=== PATIENT | female | born 1995 | race Caucasian/White ===

== ENCOUNTER 2023-04-14 08:59 | Inpatient (IN) | payer MEDICAID ==
[~2023-04-14] VITALS: Ht 162.6 cm; Wt 83.9 kg
[2023-04-14 09:38] LABS: APPEARANCE,URINE SL CLOUDY (CLEAR); BILIRUBIN,URINE NEGATIVE (NEGATIVE); BLOOD, URINE NEGATIVE (NEGATIVE); COLOR,URINE YELLOW (YELLOW); LEUKOCYTE ESTERASE ,URINE 2+ (NEGATIVE); NITRITE, URINE NEGATIVE (NEGATIVE); PROTEIN,URINE TRACE (NEGATIVE); UGLUCOSE NEGATIVE (NEGATIVE)
[2023-04-14] MEDS ORDERED: CITRIC ACID/SODIUM CITRATE 30 ML UDC PO SCH (09:45)
[2023-04-14 09:50] LABS: BACTERIA,URINE 10-30 (MOD) /HPF (None Seen); MUCUS,URINE 1+ /LPF (None Seen); RBC,URINE 0-5 /HPF (0-5); SQUAMOUS EPITHELIAL CELL,UR 4-10 (MOD) /LPF (0-3 (FEW))
[2023-04-14 09:56] LABS: INR 0.94 (0.8-1.2); PARTIAL THROMBOPLASTIN TIME 23.9 secs (22-35.6); PROTHROMBIN TIME 9.9 secs (10.8-13.4)
[2023-04-14 10:01] LABS: HEMATOCRIT 31.7 % (36-48); HEMOGLOBIN 10.2 g/dL (12.0-16.0); MEAN CORPUSCULAR HEMOGLOBIN 22 pg (27-31); MEAN CORPUSCULAR HGB CONC 32 g/dL (33-37); MEAN CORPUSCULAR VOLUME 69.8 fL (80-94); PLATELET COUNT (AUTO) 159 K/uL (140-450); RED BLOOD CELL COUNT(AUTO) 4.54 MIL/uL (4.20-5.40); RED CELL DISTRIBUTION WIDTH 22.3 % (11.6-13.7); WHITE BLOOD COUNT (AUTO) 8.7 K/uL (4.8-10.8)
[2023-04-14 10:05] LABS: ALBUMIN 2.3 g/dL (3.4-5.0); ANION GAP 11.4 (8-16); CALCIUM 8.9 mg/dL (8.5-10.1); CARBON DIOXIDE 27.1 mmol/L (21-32); CREATININE 0.7 mg/dL (0.6-1.3); POTASSIUM 4.5 mmol/L (3.5-5.1); TOTAL BILIRUBIN 0.5 mg/dL (0.0-1.0); TOTAL PROTEIN, SERUM 6.5 g/dL (6.4-8.2)
[2023-04-14] MEDS ORDERED: ceFAZolin 2,000 MG VIAL ONE (10:10)
[2023-04-14] MEDS: LACTATED RINGERS 1,000 ML IV SCH ×2 (10:52→12:06)
[2023-04-14] MEDS ORDERED: PRETAB PO (11:30)
[2023-04-14] MEDS ORDERED: FERR-212 PO (11:31)
[2023-04-14] MEDS ORDERED: MORPHINE PRES FREE 5 MG/10 ML AMP IV ONE (11:53)
[2023-04-14] MEDS ORDERED: fentaNYL citrate 0.05 MG/ML VIAL ONE (11:54)
[2023-04-14 12:16] LABS: LYMPHOCYTES % (MANUAL) 9 % (20-46); MONOCYTES % (MANUAL) 6 % (5-12)
[2023-04-14 12:17] LABS: ANISOCYTOSIS 3+; POIKILOCYTOSIS 2+
[2023-04-14] MEDS: OXYTOCIN 20 UNITS in LACTATED RINGERS 1,000 ML IV SCH (12:21)
[2023-04-14] MEDS ORDERED: oxyCODONE/APAP 5/325 MG 1 TAB TAB PO PRN (12:45)
[2023-04-14] MEDS ORDERED: KETOROLAC 30 MG/ML VIAL IVP PRN (12:45)
[2023-04-14] MEDS ORDERED: TEMAZEPAM 15 MG CAP PO PRN (12:45)
[2023-04-14] MEDS ORDERED: METHYLERGONOVINE 0.2 MG/ML AMP IM PRN (12:45)
[2023-04-14] MEDS ORDERED: IBUPROFEN 800 MG TAB PO PRN (12:45)
[2023-04-14] MEDS ORDERED: OXYTOCIN 20 UNITS/LR PREMIX 1,000 ML IV ONE (12:57)
[2023-04-14] MEDS ORDERED: diphenhydrAMINE 50 MG/ML VIAL IVP PRN (13:55)
[2023-04-14] MEDS ORDERED: ONDANSETRON 4 MG/2 ML VIAL IVP PRN (13:55)
[2023-04-14] MEDS ORDERED: KETOROLAC 60 MG/2 ML VIAL IM PRN (13:55)
[2023-04-15] MEDS: SIMETHICONE 80 MG TAB.CHEW PO PRN ×4 (00:30→18:53)
[2023-04-15] MEDS: DOCUSATE SOD/SENNA 50/8.6 MG 1 TAB PO SCH ×2 (00:32→21:11)
[2023-04-15] MEDS: OXYTOCIN 20 UNITS in LACTATED RINGERS 1,000 ML IV SCH (03:41)
[2023-04-15] MEDS ORDERED: FLU VACCINE QS2022-23 0.5 ML SYR IMVAC ONE (07:55)
[2023-04-15] MEDS ORDERED: FLU VACCINE QS2023-24 0.5 ML SYR IMVAC ONE (08:35)
[2023-04-15 08:40] LABS: BASOPHILS % (AUTO) 0.4 % (0.0-2.0); EOSINOPHILS % (AUTO) 0.2 % (0.0-4.0); HEMATOCRIT 31.3 % (36-48); HEMOGLOBIN 9.9 g/dL (12.0-16.0); LYMPHOCYTES # (AUTO) 1.8 K/uL (2.5-16.5); LYMPHOCYTES % (AUTO) 15.7 % (20.5-51.1); MEAN CORPUSCULAR HEMOGLOBIN 22 pg (27-31); MEAN CORPUSCULAR HGB CONC 32 g/dL (33-37); MEAN CORPUSCULAR VOLUME 69.1 fL (80-94); MONOCYTES # (AUTO) 0.6 K/uL (0.8-1.0); MONOCYTES % (AUTO) 5.4 % (1.7-9.3); NEUTROPHILS # (AUTO) 8.9 K/uL (1.8-7.7); NEUTROPHILS % (AUTO) 78.3 % (42.2-75.2); PLATELET COUNT (AUTO) 143 K/uL (140-450); RED BLOOD CELL COUNT(AUTO) 4.52 MIL/uL (4.20-5.40); RED CELL DISTRIBUTION WIDTH 22.2 % (11.6-13.7); WHITE BLOOD COUNT (AUTO) 11.4 K/uL (4.8-10.8)
[2023-04-15] MEDS ORDERED: OXYTOCIN 20 UNITS/LR PREMIX 1,000 ML IV ONE (12:10)
[2023-04-15] MEDS: oxyCODONE/APAP 5/325 MG 1 TAB TAB PO PRN ×2 (13:18→22:50)
[2023-04-16] MEDS: SIMETHICONE 80 MG TAB.CHEW PO PRN ×2 (01:05→08:44)
[2023-04-16] MEDS ORDERED: FLU VACCINE QS2023-24 0.5 ML SYR IMVAC ONE (04:05)
[2023-04-16] MEDS ORDERED: CAMERA MC ONE (04:42)
[2023-04-16] MEDS: oxyCODONE/APAP 5/325 MG 1 TAB TAB PO PRN ×2 (08:44→16:40)
[2023-04-16] MEDS ORDERED: SODIUM PHOSPHATE 118 ML ENEM RC SCH (15:00)
[2023-04-16] MEDS: DOCUSATE SOD/SENNA 50/8.6 MG 1 TAB PO SCH (21:00)
[2023-04-17] MEDS: oxyCODONE/APAP 5/325 MG 1 TAB TAB PO PRN (06:10)
== END 2023-04-17 09:00 | disposition home or self-care (01) | DRG 540 ==
LOC: MLD 08:59 → OBSVTOIN 09:45 → MFCC 14:30
PROVIDERS: ADMIT Obstetrics & Gynecology; ATTEND Obstetrics & Gynecology
PROC: 10D00Z1 Extraction of Products of Conception, Low, Open Approach (ICD-10-PCS; principal; 2023-04-14 12:30)
DX: O30.003 Twin pregnancy, unspecified number of placenta and unspecified number of amniotic sacs, third trimester (principal); Z37.2 Twins, both liveborn; Z20.822 Contact with and (suspected) exposure to COVID-19; Z3A.38 38 weeks gestation of pregnancy
CPT/HCPCS: 36415; 80053; 81001; 85025; 85610; 85730; 86592; 86886; 86900; 86901; 87086; 88307; 90715; J1885; J2590; J3010; J7120

== ENCOUNTER 2023-05-08 18:42 | Emergency (ER) | payer MEDICAID ==
[~2023-05-08] VITALS: Ht 162.6 cm; Wt 74.4 kg
[~2023-05-08 18:42] MED LIST: FERR-212 PO; PRETAB PO
[2023-05-08 19:04] VITALS: BP 113/72; PULSE 87; RESP 18; TEMP 98; O2SAT 97
[2023-05-08 19:51] LABS: BASOPHILS % (AUTO) 0.4 % (0.0-2.0); EOSINOPHILS # (AUTO) 0.2 K/uL (0-0.4); EOSINOPHILS % (AUTO) 2.7 % (0.0-4.0); HEMATOCRIT 36.5 % (36-48); HEMOGLOBIN 11.6 g/dL (12.0-16.0); LYMPHOCYTES # (AUTO) 2.5 K/uL (2.5-16.5); LYMPHOCYTES % (AUTO) 28.3 % (20.5-51.1); MEAN CORPUSCULAR HEMOGLOBIN 23 pg (27-31); MEAN CORPUSCULAR HGB CONC 32 g/dL (33-37); MEAN CORPUSCULAR VOLUME 71.6 fL (80-94); MONOCYTES # (AUTO) 0.6 K/uL (0.8-1.0); MONOCYTES % (AUTO) 6.8 % (1.7-9.3); NEUTROPHILS # (AUTO) 5.4 K/uL (1.8-7.7); NEUTROPHILS % (AUTO) 61.8 % (42.2-75.2); PLATELET COUNT (AUTO) 351 K/uL (140-450); RED BLOOD CELL COUNT(AUTO) 5.11 MIL/uL (4.20-5.40); RED CELL DISTRIBUTION WIDTH 22.3 % (11.6-13.7); WHITE BLOOD COUNT (AUTO) 8.8 K/uL (4.8-10.8)
[2023-05-08 20:02] LABS: ANION GAP 10.5 (8-16); CARBON DIOXIDE 30.7 mmol/L (21-32); CREATININE 0.6 mg/dL (0.6-1.3); POTASSIUM 4.2 mmol/L (3.5-5.1)
[2023-05-08 20:16] LABS: ALBUMIN 3.3 g/dL (3.4-5.0); TOTAL BILIRUBIN 0.2 mg/dL (0.0-1.0); TOTAL PROTEIN, SERUM 7.6 g/dL (6.4-8.2)
[2023-05-08 20:24] LABS: APPEARANCE,URINE CLEAR (CLEAR); BILIRUBIN,URINE NEGATIVE (NEGATIVE); BLOOD, URINE NEGATIVE (NEGATIVE); COLOR,URINE YELLOW (YELLOW); LEUKOCYTE ESTERASE ,URINE 1+ (NEGATIVE); NITRITE, URINE NEGATIVE (NEGATIVE); PROTEIN,URINE NEGATIVE (NEGATIVE); UGLUCOSE NEGATIVE (NEGATIVE); UROBILINOGEN,URINE 0.2 EU/dL (0.2 - 1)
[2023-05-08 20:52] LABS: RBC,URINE 0-5 /HPF (0-5); WBC,URINE 0-5 /HPF (0-5)
[2023-05-08 20:53] LABS: BACTERIA,URINE FEW /HPF (None Seen); HYALINE CASTS, URINE 0-10 /LPF (None Seen); MUCUS,URINE 1+ /LPF (None Seen); TRICHOMONAS,URINE None Seen /HPF (None Seen); YEAST,URINE None Seen /HPF (None Seen)
[2023-05-08 22:44] VITALS: O2SAT 99
[2023-05-09] MEDS ORDERED: CEPH-588 PO (02:48)
[2023-05-09 03:04] VITALS: BP 101/71; PULSE 72; RESP 13; TEMP 98.7; O2SAT 98
== END 2023-05-09 03:00 | disposition home or self-care (01) ==
LOC: MED 18:42
DX: O86.01 Infection of obstetric surgical wound, superficial incisional site (principal); Z79.899 Other long term (current) drug therapy
CPT/HCPCS: 36415; 74177; 80053; 81001; 81025; 83690; 85025; 87086; 99285; Q9967

== ENCOUNTER 2024-01-08 04:17 | Emergency (ER) | payer MEDICAID, OTHER ==
[~2024-01-08] VITALS: Ht 162.6 cm; Wt 7.8 kg
[~2024-01-08 04:17] MED LIST changes: +CEPH-588 PO
[2024-01-08 04:23] VITALS: BP 111/77; PULSE 80; RESP 16; TEMP 209.5; TEMP 98.6; O2SAT 99
[2024-01-08 04:35] VITALS: O2SAT 99
[2024-01-08 04:58] LABS: FLU A ANTIGEN negative (NEGATIVE); FLU B ANTIGEN NEGATIVE (NEGATIVE)
[2024-01-08] MEDS ORDERED: IBUP-2213 PO (05:57)
[2024-01-08] MEDS ORDERED: AMOX1TAB8 PO (05:57)
[2024-01-08] MEDS: ACETAMINOPHEN EXTRA STRENGTH 500 MG TAB PO ONE (06:04)
== END 2024-01-08 06:05 | disposition home or self-care (01) ==
LOC: MED 04:17
DX: J02.9 Acute pharyngitis, unspecified (principal); Z20.822 Contact with and (suspected) exposure to COVID-19; Z79.899 Other long term (current) drug therapy
CPT/HCPCS: 87081; 99283